=== PATIENT | female | born 1990 | race Caucasian/White ===

== ENCOUNTER 2024-11-26 15:51 | Emergency (ER) | payer OTHER ==
[~2024-11-26] VITALS: Ht 152.4 cm; Wt 84.1 kg
[2024-11-26] MEDS ORDERED: ESCITALOPRAM (16:11)
[2024-11-26] MEDS ORDERED: IBUP-1022 (16:11)
[2024-11-26] MEDS ORDERED: HYDR-3713 (16:11)
[2024-11-26 18:39] VITALS: BP 169/97; TEMP 98.7; O2SAT 97
== END 2024-11-26 18:45 | disposition home or self-care (01) ==
LOC: M ED 15:51
DX: S86.112A Strain of other muscle(s) and tendon(s) of posterior muscle group at lower leg level, left leg, initial encounter (principal); X58.XXXA Exposure to other specified factors, initial encounter; Y92.009 Unspecified place in unspecified non-institutional (private) residence as the place of occurrence of the external cause; Y93.01 Activity, walking, marching and hiking; Y99.9 Unspecified external cause status; F32.A Depression, unspecified; Z88.5 Allergy status to narcotic agent